=== PATIENT | male | born 1985 ===

== ENCOUNTER 2021-02-17 05:55 | Day surgery (SDC) | payer OTHER ==
[~2021-02-17 05:55] MED LIST: COZAAR50 MG PO
== END 2021-02-17 10:40 | disposition home or self-care (01) ==
LOC: CIR.AMB 05:55
PROVIDERS: ATTEND Colon & Rectal Surgery
DX: C20 Malignant neoplasm of rectum (principal)
CPT/HCPCS: 36561; C1751

== ENCOUNTER 2022-10-05 05:27 | Day surgery (SDC) | payer OTHER | END 2022-10-05 09:45 | disposition home or self-care (01) | LOC: AMB-ENDOS 05:27 | PROVIDERS: ATTEND Colon & Rectal Surgery | DX: D12.6 Benign neoplasm of colon, unspecified (principal); Z85.048 Personal history of other malignant neoplasm of rectum, rectosigmoid junction, and anus; K64.8 Other hemorrhoids; K92.1 Melena; Z20.822 Contact with and (suspected) exposure to COVID-19; Z88.0 Allergy status to penicillin ==